=== PATIENT | male | born 1960 | race Caucasian/White ===

== ENCOUNTER 2019-01-03 06:27 | Day surgery (SDC) | payer OTHER ==
[~2019-01-03] VITALS: Ht 175.3 cm; Wt 98.1 kg
[~2019-01-03 06:27] MED LIST: AMLO5 PO; ENAL10 PO; ENAL5 PO; LOSARTAN POTAS100 MG PO; OMEP20ER PO; ONDA4ODT MM; RXHYDMOR2 PO; RXONDA4ODT MM
--- NOTE | 2019-01-03 07:11 | NUR ---
01/03/19 0711 Harinder Quiroga CALL LIGHT WITHIN REACH
--- NOTE | 2019-01-03 08:36 | NUR ---
01/03/19 0836 Jenna Block ALL CHARTING COMPLETED BY [facility].NVP. COMPUTER DID NOT LOG PREVIOUS PERSON OUT.
== END 2019-01-03 08:58 | disposition home or self-care (01) ==
LOC: ORSCSDS 06:27
PROVIDERS: Internal Medicine Gastroenterology
PROC: 0DBM8ZX Excision of Descending Colon, Via Natural or Artificial Opening Endoscopic, Diagnostic (ICD-10-PCS; principal; 2019-01-03 08:00)
DX: Z12.11 Encounter for screening for malignant neoplasm of colon (principal); K63.5 Polyp of colon; I10 Essential (primary) hypertension; K21.9 Gastro-esophageal reflux disease without esophagitis; Z79.899 Other long term (current) drug therapy
CPT/HCPCS: 88305; J0330; J0461; J2405; J2704; J7120

== ENCOUNTER 2024-02-23 06:40 | Day surgery (SDC) | payer MEDICARE, OTHER ==
[2024-02-23] VITALS (9 sets, daily range): BP systolic 105–150; BP diastolic 71–88
[~2024-02-23] VITALS: Ht 173 cm; Wt 102.0 kg
[~2024-02-23 06:40] MED LIST changes: +BACL10 PO; +CLOBETTC TOP; +CeFAZolin Sodium 2,000 MG in NS 100 ML IV SCH; +LOSARTAN-HCTZ1 EACH PO; +Lactated Ringer's 1,000 ML IV SCH; +PANT40 PO
[2024-02-23] MEDS ORDERED: FINA5 PO (07:12)
[2024-02-23] MEDS ORDERED: LOSARTAN-HCTZ1 EAC5 PO (07:12)
--- NOTE | 2024-02-23 07:50 | NUR ---
History, Chart, Medications and Allergies reviewed before start of procedure. Patient up to Ambulate independently. Gait steady. Pre-Op teaching done. Pt verbalizes understanding. Patient confirms NPO status and agrees with scheduled surgery. Patient reports completing Chlorhexadine shower X2 prior to admission to hospital. Surgical site prepped with 2% Chlorhexidine cloth wipe. Lungs clear T/O to Auscultation. Patient States Post-Procedure ride home has been arranged. Advance directive distributed & placed with patient's belongings under [facility]. Eye glasses transferred to PACU.
[2024-02-23] MEDS ORDERED: Bupivacaine 0.5% HCl 5 MG/ML 30MLVIAL ONE (07:56)
--- NOTE | 2024-02-23 08:07 | NUR ---
Patient up to restroom with [facility].
[2024-02-23] MEDS ORDERED: FentaNYL Citrate 50 MCG/ML 2 ML Injection ONE ×2 (08:23→09:53)
[2024-02-23] MEDS ORDERED: propofoL 20 ML IV ONE (08:25)
[2024-02-23] MEDS ORDERED: ePHEDrine Sulfate 50 MG/ML 1ML Injection ONE (08:36)
[2024-02-23] MEDS ORDERED: Sugammadex Sodium 200 MG/2ML SDV (100 MG/ML) ONE (09:08)
[2024-02-23] MEDS ORDERED: Bupivacaine 0.5% Inj 10 ML Vial ONE ×2 (09:32→09:33)
[2024-02-23] MEDS ORDERED: HYDROcodone 5-APAP 325 TAB PO PRN (09:45)
[2024-02-23] MEDS ORDERED: Ketorolac Tromethamine 30mg Vial ONE (09:53)
--- NOTE | 2024-02-23 10:15 | NUR ---
PT TO DAY SURGERY FROM PACU; HERNIA REPAIR AND RIGHT LATERAL ABD WALL MASS REMOVAL. BEDSIDE REPORT RECEIVED. VSS. PT STATES PAIN TOLERABLE AT A 2/10. PT HAS UMBILLICAL DRESSING THAT HAS GUAZE THAT IS COVERED WITH TEGADERM AND IS C/D/I AND A STERI STRIP ON HIS RIGHT FLANK THAT IS C/D/I. PT HAS NO COMPLAINTS AT THIS TIME.
--- NOTE | 2024-02-23 10:19 | NUR ---
TOLERATING PO FLUIDS.
--- NOTE | 2024-02-23 10:33 | NUR ---
ICE TO PT ABD. BOTH INCISIONS REMAIN C/D/I. TOLERATING PO FLUIDS Discharge instructions reviewed with patient. Patient verbalizes understanding. Copy given to patient to take home. Patient States Post-Procedure ride home has been arranged.
--- NOTE | 2024-02-23 10:37 | NUR ---
Patient up to Ambulate independently. Gait steady. Up to bathroom
--- NOTE | 2024-02-23 10:40 | NUR ---
Discharged via wheelchair to private car for ride home.
== END 2024-02-23 10:43 | disposition home or self-care (01) ==
LOC: ORSCMMR 06:40 → ORD 08:00 → ORSCMMR 08:00
PROVIDERS: Surgery
PROC: 0JB80ZX Excision of Abdomen Subcutaneous Tissue and Fascia, Open Approach, Diagnostic (ICD-10-PCS; principal; 2024-02-23 08:00)
PROC: 0WUF0JZ Supplement Abdominal Wall with Synthetic Substitute, Open Approach (ICD-10-PCS; principal; 2024-02-23 08:00)
DX: K42.9 Umbilical hernia without obstruction or gangrene (principal); D17.79 Benign lipomatous neoplasm of other sites; I10 Essential (primary) hypertension; G47.33 Obstructive sleep apnea (adult) (pediatric); K21.9 Gastro-esophageal reflux disease without esophagitis; E66.9 Obesity, unspecified; Z68.34 Body mass index [BMI] 34.0-34.9, adult; N40.0 Benign prostatic hyperplasia without lower urinary tract symptoms; Z79.899 Other long term (current) drug therapy
CPT/HCPCS: 88304; A9270; C1781; J0690; J1885; J2704; J3010; J7120